=== PATIENT | male | born 1925 | race Caucasian/White ===

== ENCOUNTER 2016-08-25 09:55 | Inpatient (IN) | payer MEDICARE, BC ==
[~2016-08-25] VITALS: Ht 175.3 cm; Wt 77.0 kg
[~2016-08-25 09:55] MED LIST: ACTOS30 MG PO; AMBIEN 10MG10 MG PO; AMBIEN CR 12.12.5 MG PO; AMITRIPTYLINE H25 M1 PO; ASPIR-LOW81 MG PO; ASPIR-LOX325 MG PO; ASPIRIN E.C. 8181 MG PO; ATIVAN 0.50.5 MG/TAB PO; ATORVASTATIN PO; ATROVENT NASAL15 ML NS; BEPREVE15 MG/ML OU; BETAPACE 120MG120 MG PO; CELEBREX; CEPHALEXIN500 M1 PO; CHERATUSSIN AC120 ML PO; COENZYME Q-10100 M1 PO; COUMADIN 2MG2 MG/TAB PO; COUMADIN 3MG3 MG/TAB PO; COUMADIN PO; COUMADIN4 MG PO; COZAAR 50MG50 MG/TAB PO; CUTIVATE0.05% TP; DESYREL 50MG50 MG PO; DETROL LA4 PO; DIOVAN 80MG80 MG PO; DIOVAN PO; DOXYCYCLINE 10100 MG PO; HYDROCORTISONE13 TP; JANTOVEN2 MG PO; JANUVIA 100MG100 MG PO; LIPITOR 10MG10 MG PO; LUTEIN20 M1; MULTI VITAMINS1 TAB PO; NEURONTIN100 MG/CAP PO; OMEGA-3 FISH1000 MG PO; OMNICEF 300MG300 MG PO; PEPCID 20MG TAB20 MG PO; PRANDIN 0.5MG0.5 MG PO; PRANDIN0.5 MG PO; PRANDIN1 MG PO; PREVACID 15MG15 M1; PREVACID 15MG15 M1 PO; PREVACID 30MG30 M1 PO; PREVACID 30MG30 MG PO; PREVACID SOLUTA15 M1 PO; PREVACID30 MG PO; PRILOSEC 20MG20 MG PO; PROCTOZONE-HC2.5% RC; REMERON 15M15 MG/TA1 PO; SEROQUEL 2525 MG/TAB PO; SOTALOL PO; TRADJENTA5 MG PO; XANAX0.25 MG PO; ZETIA10 MG PO; ZOFRAN4 MG PO; [UNRECOGNIZED DRUG - OTHER]; [UNRECOGNIZED DRUG - REMARK]; prandin PO
[2016-08-25 10:15] VITALS: BP 144/67; PULSE 64
[2016-08-25 10:30] LABS: BASO % 0.2 % (0.0-2.0); EOS # 0.2 (0.0-0.7); EOS % 2.8 % (0-4.0); GRAN # 3.8 (1.4-6.5); GRAN % 65.2 % (42.2-75.2); HEMATOCRIT 39.2 % (42.0-52.0); HEMOGLOBIN 12.3 g/dl (13.5-18.0); LYMPH # 1.3 (1.2-3.4); LYMPH % 22.2 % (20.0-51.0); MEAN CELL VOLUME 80 fl (80.0-100.0); MEAN CORPUSCULAR HEMOGLOBIN 25 pg (27.0-31.0); MEAN CORPUSCULAR HGB CONC 31 g/dl (33.0-37.0); MEAN PLATELET VOLUME 10.2 fl (7.4-10.4); MONO # 0.5 (0.1-0.6); MONO % 9.4 % (1.7-9.3); PLATELET COUNT 243 K/mm3 (130-400); RED BLOOD COUNT 4.93 M/mm3 (4.20-5.60); REDCELL DISTRIBUTION WIDTH-CV 14.9 % (11.5-14.5); WHITE BLOOD COUNT 5.8 K/mm3 (4.8-10.8)
[2016-08-25 10:36] LABS: PROTHROMBIN TIME 22.6 SECONDS (9.7-12.8)
[2016-08-25 10:53] LABS: ADJUSTED CALCIUM 9.2 mg/dL (8.4-10.2); ALANINE AMINOTRANSFERASE 32 U/L (21-72); ALKALINE PHOSPHATASE 72 U/L (50-136); ANION GAP 10 mmol/L (7-16); BILIRUBIN,TOTAL 0.9 mg/dL (0.0-1.0); BLOOD UREA NITROGEN 18 mg/dL (9-20); C-REACTIVE PROTEIN 1.1 mg/dL (0.0-0.9); CALCIUM 9.2 mg/dL (8.4-10.2); CARBON DIOXIDE 29 mmol/L (22-30); CHLORIDE 100 mmol/L (98-107); GLUCOSE 132 mg/dL (74-106); POTASSIUM 4.7 mmol/L (3.4-5.0); SODIUM 139 mmol/L (137-145); TOTAL PROTEIN 8.5 gm/dL (6.4-8.2)
[2016-08-25 11:04] LABS: TROPONIN-I < 0.012 ng/mL (0.000-0.034)
[2016-08-25] MEDS ORDERED: ASPIRIN 81M81 MG/TA2 PO (11:42)
[2016-08-25 11:53] LABS: PH 7 (5-8); SQUAMOUS EPITHELIAL 0-2 /hpf; URINE APPEARANCE Clear; URINE BACTERIA None Seen /hpf; URINE BILIRUBIN Negative (NEGATIVE); URINE BLOOD Negative (NEGATIVE); URINE COLOR Yellow; URINE GLUCOSE Negative (NEGATIVE); URINE KETONE Negative (NEGATIVE); URINE RBC 0-2 /hpf; URINE UROBILINOGEN Negative (NEGATIVE); URINE WBC 0-2 /hpf
[2016-08-25 12:57] VITALS: BP 142/55; PULSE 70; TEMP 97.7
[2016-08-25] MEDS ORDERED: VOLTAREN GEL 1%1 TU TP (13:44)
[2016-08-25] MEDS ORDERED: PROTONIX20 MG PO (13:45)
[2016-08-25] MEDS ORDERED: AMBIEN CR 12.12.5 MG PO (13:46)
[2016-08-25 15:52] VITALS: BP 142/53; PULSE 75; TEMP 97.6
[2016-08-25 19:43] VITALS: BP 143/58; PULSE 69; TEMP 98.4
[2016-08-25 23:33] VITALS: BP 125/50; PULSE 63; TEMP 97.5
[2016-08-26 03:33] VITALS: BP 129/63; PULSE 81; TEMP 98
[2016-08-26 07:44] VITALS: BP 128/47; PULSE 68; TEMP 97.7
[2016-08-26] MEDS ORDERED: MEDROL 4MG DOSPA4 MG PO (11:51)
[2016-08-26] MEDS ORDERED: ANTIVERT 25MG25 MG PO (11:54)
[2017-02-13] MEDS ORDERED: XANAX .25M0.25 MG/TA PO (09:14)
[2017-02-13] MEDS ORDERED: ANUSOL-HC2.5% RC (09:14)
[2017-02-13] MEDS ORDERED: CLARITIN 1010 MG/TAB PO (09:15)
[2017-02-13] MEDS ORDERED: LUTEIN20 M1 (09:15)
[2017-02-13] MEDS ORDERED: NASONEX SPRAY17 GM NS (09:15)
[2017-02-13] MEDS ORDERED: PROTONIX20 MG PO (09:15)
[2017-02-13] MEDS ORDERED: LEADER CLE17 GM/Dose PO (09:16)
[2017-02-13] MEDS ORDERED: PRANDIN1 MG PO (09:16)
[2017-02-13] MEDS ORDERED: COUMADIN 2MG2 MG/TAB PO (09:17)
[2017-02-13] MEDS ORDERED: COUMADIN 3MG3 MG/TAB PO (09:18)
[2017-02-13] MEDS ORDERED: ZOFRAN8 MG PO (09:59)
[2017-02-13] MEDS ORDERED: DOXYCYCLINE HY100 MG PO (10:24)
== END 2016-08-26 15:25 | disposition home or self-care (01) | DRG 149 ==
LOC: COL.ER 09:55 → MEDICAL 11:44
PROVIDERS: Emergency Medicine
DX: H81.13 Benign paroxysmal vertigo, bilateral (principal); E11.9 Type 2 diabetes mellitus without complications; I48.91 Unspecified atrial fibrillation; I25.10 Atherosclerotic heart disease of native coronary artery without angina pectoris; Z95.5 Presence of coronary angioplasty implant and graft; Z95.0 Presence of cardiac pacemaker; Z86.73 Personal history of transient ischemic attack (TIA), and cerebral infarction without residual deficits; Z79.01 Long term (current) use of anticoagulants
CPT/HCPCS: 99222-AI; 99238; J2060; J2405; J7030; J7512